=== PATIENT | male | born 1960 | race Caucasian/White ===

== ENCOUNTER → 2019-08-27 | Outpatient (CLI) | payer BC ==
[2019-08-27 09:29] LABS: ALBUMIN 4.7 g/dL (3.5-5.0); POTASSIUM 4.8 mmol/L (3.5-5.1)
[2019-08-27 09:31] LABS: TOTAL PROTEIN 7.6 g/dL (6.4-8.3)
[2019-08-27 09:33] LABS: TOTAL BILIRUBIN 0.6 mg/dL (0.2-1.2)
== END ==
LOC: LAB 09:07
PROVIDERS: Family Medicine
DX: Z00.00 Encounter for general adult medical examination without abnormal findings (principal); Z12.5 Encounter for screening for malignant neoplasm of prostate; Z23 Encounter for immunization; M10.9 Gout, unspecified; I10 Essential (primary) hypertension

== ENCOUNTER → 2020-12-20 | Outpatient (CLI) | payer BC ==
[2020-12-20 08:44] LABS: ALBUMIN 4.4 g/dL (3.5-5.0); POTASSIUM 4.5 mmol/L (3.5-5.1)
[2020-12-20 08:45] LABS: CALCIUM 9.5 mg/dL (8.3-10.5)
[2020-12-20 08:46] LABS: TOTAL PROTEIN 7.3 g/dL (6.4-8.3)
[2020-12-20 08:48] LABS: TOTAL BILIRUBIN 0.5 mg/dL (0.2-1.2)
== END ==
LOC: LAB 08:10
PROVIDERS: Family Medicine
DX: Z13.1 Encounter for screening for diabetes mellitus (principal); Z13.220 Encounter for screening for lipoid disorders; Z12.5 Encounter for screening for malignant neoplasm of prostate; Z87.39 Personal history of other diseases of the musculoskeletal system and connective tissue

== ENCOUNTER → 2021-04-27 | Outpatient (CLI) | payer BC ==
[~2021-04-27] MED LIST: ASPIRIN E.C. 8181 MG; FENOFIBRATE MI134 MG PO; LISINOPRIL2.5 MG PO; ZYLOPRIM 100MG100 MG PO
[2021-04-27 08:15] LABS: ALBUMIN 4.4 g/dL (3.5-5.0)
[2021-04-27 08:19] LABS: TOTAL BILIRUBIN 0.5 mg/dL (0.2-1.2)
[2021-04-27 08:23] LABS: DIRECT BILIRUBIN 0.2 mg/dL (0.0-0.5)
== END ==
LOC: LAB 07:40
PROVIDERS: Family Medicine
DX: E78.2 Mixed hyperlipidemia (principal)

== ENCOUNTER 2021-07-06 20:17 | Emergency (ER) | payer BC ==
[~2021-07-06] VITALS: Ht 172.7 cm; Wt 83.9 kg
[2021-07-06] MEDS ORDERED: LISINOPRIL2.5 MG PO (20:30)
[2021-07-06] MEDS ORDERED: FENOFIBRATE MI134 MG PO (20:30)
[2021-07-06] MEDS ORDERED: ASPIRIN E.C. 8181 MG (20:30)
[2021-07-06] MEDS ORDERED: ZYLOPRIM 100MG100 MG PO (20:30)
[2021-07-06 21:57] LABS: BASO # 0.02 (0.02-0.10); EOS # 0.07 (0.04-0.40); EOS % 0.7 % (0.0-4.0); HEMATOCRIT 38.2 % (42.0-52.0); HEMOGLOBIN 13.2 g/dL (13.5-18.0); LYMPH# 0.89 (1.50-4.00); MEAN CELL VOLUME 89 fl (78-100); MEAN CORPUSCULAR HEMOGLOBIN 31 pg (27-31); MEAN CORPUSCULAR HGB CONC 35 g/dL (33-37); MEAN PLATELET VOLUME 9.3 fl (7.4-10.4); MONO # 0.76 (0.20-0.80); NEU # 8.74 (1.40-6.50); PLATELET COUNT 212 K/mm3 (130-400); RED BLOOD COUNT 4.31 M/mm3 (4.20-5.60); RED CELL DISTRIBUTION WIDTH 12.5 % (11.5-14.5); WHITE BLOOD COUNT 10.5 K/mm3 (4.8-10.8)
[2021-07-06 22:13] LABS: POTASSIUM 3.8 mmol/L (3.5-5.1); SODIUM 145 mmol/L (136-145)
[2021-07-06 22:14] LABS: CALCIUM 9.2 mg/dL (8.3-10.5)
[2021-07-06 22:15] LABS: GLUCOSE 88 mg/dL (75-110)
[2021-07-06 22:16] LABS: CARBON DIOXIDE 25 mmol/L (22-29)
[2021-07-06 22:28] LABS: TROPONIN-I < 0.03 ng/mL (<0.030)
[2021-07-07 02:41] VITALS: BP 104/66
== END 2021-07-07 02:40 | disposition home or self-care (01) ==
LOC: ED 20:17
PROVIDERS: Family Medicine
DX: E16.2 Hypoglycemia, unspecified (principal); R55 Syncope and collapse; R00.2 Palpitations; I10 Essential (primary) hypertension; M10.9 Gout, unspecified; E78.5 Hyperlipidemia, unspecified; J45.909 Unspecified asthma, uncomplicated; Z79.899 Other long term (current) drug therapy
CPT/HCPCS: J7030

== ENCOUNTER → 2022-04-25 | Day surgery (SDC) | payer BC | LOC: MSO 07:24 | DX: Z12.11 Encounter for screening for malignant neoplasm of colon (principal); K57.30 Diverticulosis of large intestine without perforation or abscess without bleeding | CPT/HCPCS: 00812; J2704; J7120 ==

== ENCOUNTER → 2022-04-29 | Outpatient (CLI) | payer BC ==
[2022-04-29 08:18] LABS: ALBUMIN 4.6 g/dL (3.5-5.0); POTASSIUM 4.6 mmol/L (3.5-5.1)
[2022-04-29 08:19] LABS: CALCIUM 9.9 mg/dL (8.3-10.5)
[2022-04-29 08:20] LABS: TOTAL PROTEIN 7.1 g/dL (6.4-8.3)
[2022-04-29 08:22] LABS: TOTAL BILIRUBIN 0.5 mg/dL (0.2-1.2)
== END ==
LOC: LAB 07:59
PROVIDERS: Family Medicine
DX: Z12.5 Encounter for screening for malignant neoplasm of prostate (principal); E78.2 Mixed hyperlipidemia; I10 Essential (primary) hypertension; E79.0 Hyperuricemia without signs of inflammatory arthritis and tophaceous disease